=== PATIENT | female | born 1945 | race Caucasian/White ===

== ENCOUNTER 2023-12-31 20:46 | Emergency (ER) | payer OTHER ==
[~2023-12-31] VITALS: Ht 160 cm; Wt 51.7 kg
[2023-12-31 20:54] VITALS: BP 140/72; PULSE 96; RESP 16; TEMP 98.1; O2SAT 98
[2023-12-31 22:38] VITALS: BP 128/72; PULSE 88; RESP 16; TEMP 98.1; O2SAT 98
== END 2023-12-31 22:38 | disposition home or self-care (01) ==
LOC: MED 20:46
DX: R04.0 Epistaxis (principal); Z79.899 Other long term (current) drug therapy
CPT/HCPCS: 99283